=== PATIENT | female | born 1985 ===

== ENCOUNTER 2017-10-21 15:12 | Outpatient (REF) | payer SELFPAY | END 2017-10-21 15:13 | LOC: OM 15:12 | PROVIDERS: Visit Provider Nurse Practitioner Family | DX: Z11.1 Encounter for screening for respiratory tuberculosis (principal) ==

== ENCOUNTER 2017-10-23 08:22 | Outpatient (REF) | payer SELFPAY | END 2017-10-23 08:23 | LOC: OM 08:22 | PROVIDERS: Visit Provider Nurse Practitioner Family | DX: Z11.1 Encounter for screening for respiratory tuberculosis (principal) ==